=== PATIENT | female | born 1985 | race Caucasian/White ===

== ENCOUNTER 2021-01-04 08:37 | Emergency (ER) | payer SELFPAY ==
[~2021-01-04] VITALS: Ht 165.1 cm; Wt 80.4 kg
[2021-01-04] MEDS ORDERED: DIPHENHYDRAMINE 50 MG/ML, 1ML IVPush ONE (09:00)
[2021-01-04] MEDS ORDERED: SODIUM CHLORIDE 0.9% 1,000ML IVBOLUS ONE (09:00)
[2021-01-04 09:09] VITALS: BP 121/85
--- NOTE | 2021-01-04 09:10 | NUR ---
PT AMBULATOPRY TO XRAY
[2021-01-04] MEDS ORDERED: DIPHENHYDRAMINE 50 MG/ML, 1ML ONE (09:18)
[2021-01-04 09:21] LABS: MICROSCOPIC INDICATED
--- NOTE | 2021-01-04 09:49 | NUR ---
pt requesting to leaving stating "my urologist just called and I have an apointment at 10". pt A&O x4, dressed self, signed AMA form and ambulatory out of unit with steady gait.
== END 2021-01-04 09:47 | disposition left against medical advice (07) ==
LOC: ED 09:35
DX: R31.0 Gross hematuria (principal); N23 Unspecified renal colic; Z90.49 Acquired absence of other specified parts of digestive tract
CPT/HCPCS: 74018; 81001; 87086; 99284

== ENCOUNTER 2021-01-05 14:28 | Emergency (ER) | payer SELFPAY ==
[~2021-01-05] VITALS: Ht 165.1 cm; Wt 82.0 kg
[2021-01-05 14:44] VITALS: BP 125/84
--- NOTE | 2021-01-05 15:19 | NUR ---
Pt reports she has had pain in 2nd lower tooth since . Pt discharged with antibiotic prescription and plan to follow up with dentist.
== END 2021-01-05 15:25 ==
LOC: ED 15:15
DX: K02.9 Dental caries, unspecified (principal)
CPT/HCPCS: 99283